=== PATIENT | female | born 1995 | race Caucasian/White ===

== ENCOUNTER 2019-07-01 09:07 | Outpatient (CLI) | payer BC, MEDICAID, SELFPAY | END 2019-07-01 09:08 | disposition home or self-care (01) | LOC: ANHBWCAUD 09:08 | DX: H90.42 Sensorineural hearing loss, unilateral, left ear, with unrestricted hearing on the contralateral side (principal) | CPT/HCPCS: 92557; 92567 ==

== ENCOUNTER 2022-06-30 12:40 | Outpatient (CLI) | payer OTHER, SELFPAY | END 2022-06-30 12:41 | disposition home or self-care (01) | LOC: ANHBWCAUD 12:51 | PROVIDERS: Visit Provider Family Medicine | DX: H91.93 Unspecified hearing loss, bilateral (principal) | CPT/HCPCS: 92557; 92567 ==